=== PATIENT | male | born 1945 | race Two or more races ===

== ENCOUNTER 2017-11-13 13:48 | Outpatient (CLI) | payer OTHER | END 2017-11-13 13:57 | disposition home or self-care (01) | LOC: RAD 501 13:48 | DX: R31.29 Other microscopic hematuria (principal) ==

== ENCOUNTER 2017-12-05 09:33 | Outpatient (CLI) | payer OTHER | END 2017-12-05 09:35 | disposition home or self-care (01) | LOC: SONOGRAMA 09:33 | DX: R31.21 Asymptomatic microscopic hematuria (principal) ==

== ENCOUNTER 2019-01-20 11:03 | Outpatient (CLI) | payer OTHER | END 2019-01-21 08:07 | disposition home or self-care (01) | LOC: SONOGRAMA 11:03 → MAMO-SONO 11:15 → SONOGRAMA 01-21 08:07 | DX: N45.3 Epididymo-orchitis (principal) ==